=== PATIENT | male | born 1990 | race Caucasian/White ===

== ENCOUNTER 2023-06-08 00:29 | Day surgery (SDC) | payer OTHER, SELFPAY ==
[2023-05-28 14:08] VITALS: BMI 27.9
[2023-06-08 06:20] VITALS: BP 121/82; PULSE 81; RESP 18; TEMP 36.1; O2SAT 94
[2023-06-08] MEDS: LACTATED RINGERS 1,000 ML 150 ML IV CONT (06:28)
--- NOTE | 2023-06-08 07:07 | P.PNAN_ITS ---
Anes - Initial Pre Proc Eval Procedure: Operation Date: 06/08/23 07:30 Proposed Procedures p Esophagogastroduodenoscopy - Ralph Young MD Date/Time: 06/08/23 07:07 Surgeon: Ralph Young MD Pre Op Diagnosis: GERD without esophagitis Patient Data Age: 33 Gender: M Height: 1.8 m Weight: 91.4 kg Last Vital Signs Temp 97 F L 06/08/23 06:20 Pulse 81 06/08/23 06:20 Resp 18 06/08/23 06:20 BP 121/82 06/08/23 06:20 Pulse Ox 94 06/08/23 06:20 O2 Del Method Room Air 06/08/23 06:20 Allergies Allergy/AdvReac Type Severity Reaction Status Date / Time Sulfa (Sulfonamide Allergy Intermediate Hives Verified 06/08/23 06:18 Antibiotics) Home Medications Medication Instructions Recorded Confirmed Type bupropion HCl 150 mg 24 hr tablet, 150 mg PO QAM 07/10/22 05/28/23 History extended release (Wellbutrin XL) hydroxychloroquine 200 mg tablet 200 mg PO BID 07/10/22 05/28/23 History hydroxyzine HCl 10 mg tablet 10 mg PO TID PRN Anxiety 07/10/22 05/28/23 History multivitamin 1 tablet PO DAILY 07/10/22 05/28/23 History famotidine 40 mg tablet 40 mg PO HS 05/28/23 05/28/23 History pantoprazole 40 mg tablet,delayed 40 mg PO DAILY 05/28/23 05/28/23 History release Patient hx anesthesia problems: none Family hx anesthesia problems: none Results Review: All pre-operative results and documents have been reviewed as part of the pre- operative evaluation. [facility] Past Medical History Medical History (Updated 07/13/22 @ 13:31 by Angie Alexander) Anxiety Depression GERD (gastroesophageal reflux disease) Prostatitis Rheumatoid arthritis Family History Family History Mother Lung cancer Rheumatoid arthritis Sibling Diabetes mellitus Social History Social History Smoking status: Never smoker Alcohol intake: never Alcohol use details: Rare alcohol use Substance use: never Substance use type: does not use Living arrangements: with family Occupation/Education: unemployed Spiritual care concerns: No Anes - Eval Final PreProcedure Day of Procedure 06/08/23 07:07 Patient weight: normal Heart: regular rate and rhythm Lungs: clear to auscultation Airway: Mallampati scale class II Neurological: alert and oriented Last oral intake: >/= 8 hours ASA classification: II Emergent: no Anesthetic plan: proceed Anesthesia type and monitoring: general GIVS and standard monitoring Results Review: All pre-operative results and documents have been reviewed as part of the pre- operative evaluation. Informed Consent: The patient's anesthetic plan and its attendant risks and benefits were discussed with the patient/family/POA. Questions were solicited and answers provided to the satisfaction of the patient/family/POA.
--- NOTE | 2023-06-08 07:25 | PM.HPGS ---
History of Present Illness History of Present Illness Consent: Risks, benefits, and alternatives have been discussed and questions answered. Patient agrees to proceed with procedure. Chief complaint: GERD without esophagitis Narrative: Armando Lunsford is a 33 year old male with gerd on protonix and pepcid, breakthrough symptoms, had EGD about 4 years ago Review of Systems Constitutional: Constitutional: Denies headache(s) and Denies weakness Eyes: Eyes: Denies blurry vision ENT: Reports Normal hearing present, Denies headache(s) and Denies neck pain Cardiovascular: Cardiovascular: Denies chest pain and Denies dyspnea Respiratory: Respiratory: Denies dyspnea Gastrointestinal: Gastrointestinal: Reports no additional gastrointestinal complaints Genitourinary: Genitourinary: Denies dysuria Musculoskeletal: Musculoskeletal: Denies neck pain Integumentary/Breasts: Skin/Breast: Denies dry skin Neurologic: Reports Normal hearing present, Denies headache(s) and Denies weakness Psychiatric: Psychiatric: Denies anxiety Endocrine: Endocrine: Denies change in body appearance Hematologic/Lymphatic: Hematologic/Lymphatic: Denies easy bleeding Allergic/Immunologic: Allergic/Immunologic: Denies urticaria PMFSH Past Medical History Medical History (Updated 06/08/23 @ 07:25 by Ralph Young MD) Anxiety Depression GERD (gastroesophageal reflux disease) Prostatitis Rheumatoid arthritis Family History Family History Mother Lung cancer Rheumatoid arthritis Sibling Diabetes mellitus Social History Social History Smoking status: Never smoker Alcohol intake: never Alcohol use details: Rare alcohol use Substance use: never Substance use type: does not use Living arrangements: with family Occupation/Education: unemployed Spiritual care concerns: No Meds Home Medications and Allergies Home Medications Medication Instructions Recorded Confirmed Type bupropion HCl 150 mg 24 hr tablet, 150 mg PO QAM 07/10/22 05/28/23 History extended release (Wellbutrin XL) hydroxychloroquine 200 mg tablet 200 mg PO BID 07/10/22 05/28/23 History hydroxyzine HCl 10 mg tablet 10 mg PO TID PRN Anxiety 07/10/22 05/28/23 History multivitamin 1 tablet PO DAILY 07/10/22 05/28/23 History famotidine 40 mg tablet 40 mg PO HS 05/28/23 05/28/23 History pantoprazole 40 mg tablet,delayed 40 mg PO DAILY 05/28/23 05/28/23 History release Allergies Allergy/AdvReac Type Severity Reaction Status Date / Time Sulfa (Sulfonamide Allergy Intermediate Hives Verified 06/08/23 06:18 Antibiotics) Vital Signs Vital Signs - 24 hr 06/08/23 06:20 Temperature 97 F L Pulse Rate 81 Respiratory Rate 18 Blood Pressure 121/82 Pulse Oximetry 94 Oxygen Delivery Room Air Exam Const: General: comfortable and no acute distress HENMT: Face/Nose/Sinus: Normal nares present Eyes: General: appearance normal, both eyes and all related structures Neck: Neck: no JVD Resp: Auscultation: clear to auscultation bilaterally Cardio: Rate: regular rate Rhythm: regular rhythm GI: Inspection: non-distended GI Palp: Yes Soft to palpation Skin: General skin exam: normal color Neuro: General: gait normal Speech: normal speech Extrem: General: normal to inspection Psych: Mental Status: mental status grossly normal Assessment and Plan Assessment and plan (1) GERD (gastroesophageal reflux disease): Code(s): K21.9 - Gastro-esophageal reflux disease without esophagitis Status: Acute Assessment and Plan: egd with bx already on ppi
[2023-06-08] MEDS: BENZOCAINE (*SP) 60 ML SPRAY CAN (HURRICAINE) 1 SPRAY MUCOUS MEM (07:29)
[2023-06-08 07:37] VITALS: BP 101/67; PULSE 82; RESP 25; O2SAT 99
[2023-06-08 07:47] VITALS: BP 92/71; PULSE 93; RESP 24; O2SAT 100
[2023-06-08 07:57] VITALS: BP 112/77; PULSE 78; RESP 20; O2SAT 100
== END 2023-06-08 08:06 | disposition home or self-care (01) ==
PROVIDERS: PCP Nurse Practitioner Family; Visit Provider Internal Medicine Gastroenterology
PROC: 0DJ08ZZ Inspection of Upper Intestinal Tract, Via Natural or Artificial Opening Endoscopic (ICD-10-PCS; CPT 43235; principal; 2023-06-08 07:30)
DX: K29.50 Unspecified chronic gastritis without bleeding (principal); K21.00 Gastro-esophageal reflux disease with esophagitis, without bleeding; M06.9 Rheumatoid arthritis, unspecified; F41.9 Anxiety disorder, unspecified; F32.A Depression, unspecified
CPT/HCPCS: 43239; 88305; 88307; J2704; J7120